=== PATIENT | female | born 1940 | race Caucasian/White ===

== ENCOUNTER 2016-10-15 13:03 | Emergency (ER) | payer MEDICARE ==
[2016-10-15 14:06] VITALS: BP 183/61
--- NOTE | 2016-10-15 14:53 | UC ---
Respiratory Complaint HPI - HPI Summary HPI Summary: Cough for 6d, getting worse. Has severe COPD with lung reduction surgery. Uses inhalers at home. She feels she needs an antibiotic and a steroid, has been through these types of exacerbations many times. Has home O2 for prn use. Hard to exercise and move around. No fever. Able to sleep fairly well at night. Eating well. No vomiting or diarrhea. No sinus congestion, "it's all in my lungs ". - History of Current Complaint Chief Complaint: UCRespiratory Stated Complaint: COUGH Time Seen by Provider: 10/15/16 14:42 Hx Obtained From: Patient Hx Last Menstrual Period: Post menapausal Onset/Duration: Gradual Onset, Lasting Days - 6 Timing: Constant Severity Initially: Mild Severity Currently: Moderate Character: Cough: Nonproductive Aggravating Factors: Exertion Alleviating Factors: Bronchodilator - "but not helping enough", Upright Position Associated Signs And Symptoms: Positive: Dyspnea, Wheezing - off and on, URI, Nasal Congestion, Hoarseness, Sinus Discomfort. Negative: Fever, Chills, Pleuritic Chest Pain - Risk Factors Pulmonary Embolism Risk Factors: Negative Cardiac Risk Factors: Negative Pseudomonas Risk Factors: Negative Tuberculosis Risk Factors: Negative - Allergies/Home Medications Allergies/Adverse Reactions: Allergies Allergy/AdvReac Type Severity Reaction Status Date / Time NSAIDs Allergy Unknown Verified 10/15/16 14:06 Reaction Details Codeine AdvReac Severe Vomiting Verified 10/15/16 14:06 Meperidine [From Demerol HCl] AdvReac Severe Vomiting Verified 10/15/16 14:06 Morphine AdvReac Severe Vomiting Verified 10/15/16 14:06 Prednisone AdvReac See Comment Verified 10/15/16 14:06 Home Medications: Home Medications Dextromethorphan-Guaifenesin [Mucinex Dm Maximum Streng 60-1200 mg] 1 tab PO Q6HR 10/15/16 [History Confirmed 10/15/16] Oxygen 2 L Nc At Night 2 units INH BEDTIME 10/15/16 [History] PMH/Surg Hx/FS Hx/Imm Hx Endocrine History Of: Reports: Thyroid Disease Denies: Diabetes Cardiovascular History Of: Reports: Hypertension Denies: Cardiac Disorders Respiratory History Of: Reports: COPD, Bronchitis Denies: Asthma GI/ History Of: Denies: Ulcer Cancer History Of: Reports: Lung Cancer - Surgical History Surgical History: Yes Surgery Procedure, Year, and Place: r lobectomy upper and middle 2001. appy. hysterectomy. fingers/foot surgeries. - Family History Known Family History: Positive: Hypertension - Social History Occupation: Employed Full-time Alcohol Use: Rare Substance Use Type: None Smoking Status (MU): Former Smoker When Did the Patient Quit Smoking/Using Tobacco: 2001 Review of Systems Constitutional: Fatigue Skin: Negative Eyes: Negative ENT: Negative Respiratory: Shortness Of Breath, Cough Cardiovascular: Negative Gastrointestinal: Negative Genitourinary: Negative Motor: Negative Neurovascular: Negative Musculoskeletal: Negative Neurological: Weakness Psychological: Negative All Other Systems Reviewed And Are Negative: Yes Physical Exam Triage Information Reviewed: Yes Appearance: Well-Appearing, No Pain Distress, Well-Nourished Vital Signs: Initial Vital Signs Temp 99.1 F 10/15/16 13:50 Pulse 85 10/15/16 13:50 Resp 20 10/15/16 13:50 BP 183/61 10/15/16 13:50 Pulse Ox 94 10/15/16 13:50 Vital Signs Reviewed: Yes Eye Exam: Normal ENT: Positive: Pharynx normal, TMs normal. Negative: Nasal congestion, Nasal drainage, Tonsillar swelling, Tonsillar exudate, Trismus, Muffled/hoarse voice Neck exam: Normal Neck: Positive: Supple Respiratory Exam: Normal Respiratory: Positive: Lungs clear - distant BS but no wheezing or rhonchi, Decreased breath sounds, Accessory muscle use. Negative: Respiratory distress, Crackles, Rhonchi, Stridor, Wheezing Cardiovascular Exam: Normal Cardiovascular: Positive: RRR Musculoskeletal Exam: Normal Neurological Exam: Normal Psychological Exam: Normal Skin Exam: Normal UC Diagnostic Evaluation - Laboratory O2 Sat by Pulse Oximetry: 94 Respiratory Course/Dx - Differential Dx/Diagnosis Differential Diagnosis/HQI/PQRI: Bronchitis, Exacerbation Of COPD, Lower Resp Infection Provider Diagnoses: COPD exacerbation Discharge - Discharge Plan Condition: Stable Disposition: HOME Prescriptions: Ciprofloxacin HCl [Cipro] 500 mg PO BID #20 tab predniSONE TAB* [Deltasone TAB*] 40 mg PO DAILY #8 tab Patient Education Materials: COPD (Chronic Obstructive Pulmonary Disease) (ED)
[2016-10-15] MEDS ORDERED: methylPREDNISolone 125 MG* 2 ML VIAL IM ONE (14:56)
== END 2016-10-15 15:31 | disposition home or self-care (01) ==
LOC: UCCORT 13:03
DX: J44.1 Chronic obstructive pulmonary disease with (acute) exacerbation (principal); J20.9 Acute bronchitis, unspecified; R06.02 Shortness of breath; R53.83 Other fatigue; R09.81 Nasal congestion; E07.9 Disorder of thyroid, unspecified; I10 Essential (primary) hypertension; Z90.2 Acquired absence of lung [part of]; Z87.891 Personal history of nicotine dependence; Z85.118 Personal history of other malignant neoplasm of bronchus and lung; Z88.5 Allergy status to narcotic agent; Z88.6 Allergy status to analgesic agent
CPT/HCPCS: 96372; 99212; G0463; J2930